=== PATIENT | male | born 1950 | race Caucasian/White ===

== ENCOUNTER 2025-01-14 20:03 | Inpatient (IN) | payer MEDICARE, MEDICAID ==
[~2025-01-14] VITALS: Ht 170.2 cm; Wt 119.9 kg
[2025-01-14 21:07] LABS: HEMATOCRIT. 44.4 % (42.0-52.0); HEMOGLOBIN. 14.5 g/dL (14.0-18.0); MEAN PLATELET VOLUME 8.6 fl (7.4-10.4); PLATELET 229 x1000/uL (130-400); RED BLOOD CELL COUNT 4.60 mill/uL (4.7-6.1); RED CELL DISTRIBUTION WIDTH 13.7 % (11.6-14.6)
[2025-01-14 21:22] LABS: CREATININE 1.4 mg/dL (0.6-1.3); INR 1.1
[2025-01-14 21:23] LABS: UREA NITROGEN BLOOD 31 mg/dL (9-23)
[2025-01-14 21:24] LABS: ASPARTATE AMINOTRANSFERASE 25 IU/L (<34)
[2025-01-14 21:25] LABS: BILIRUBIN DIRECT 0.4 mg/dL (<=3.0); BILIRUBIN TOTAL 1.2 mg/dL (0.1-1.0); PROTEIN TOTAL 7.8 g/dL (6.0-8.3)
[2025-01-14 21:26] LABS: BAND% 2.0 % (1.0-6.0); EOSINOPHILS % MANUAL 1.0 % (0.0-5.0); LYMPHOCYTES % MANUAL 7.0 % (20.0-50.0); MONOCYTES % MANUAL 1.0 % (2.0-8.0); NEUTROPHILS % MANUAL 89.0 % (45.0-75.0); PLATELET ESTIMATE NORMAL
[2025-01-14 21:47] LABS: TROPONIN I HIGH SENSITIVITY 65 ng/L (3.0-53)
[2025-01-14] MEDS: NITROGLYCERIN OINT 1GM/INCH UDPKT TD ONE (21:52)
[2025-01-14] MEDS: FUROSEMIDE 40MG/4ML VIAL IVP STA (21:52)
[2025-01-14 23:48] LABS: TROPONIN I HIGH SENSITIVITY 69 ng/L (3.0-53)
[2025-01-15 01:00] VITALS: BP 104/63; PULSE 69; RESP 66; TEMP 36.696
[2025-01-15] MEDS ORDERED: PRAM3.75 PO (04:07)
[2025-01-15] MEDS ORDERED: POTA20LI52 MT (04:07)
[2025-01-15] MEDS ORDERED: TRAZ-251 MT (04:07)
[2025-01-15] MEDS ORDERED: ESCI20TA PO (04:07)
[2025-01-15] MEDS ORDERED: PRAM1.5T5 PO (04:07)
[2025-01-15] MEDS ORDERED: FURO40TA5 PO (04:07)
[2025-01-15] MEDS ORDERED: APIX5TAB PO ×2 (04:07→09:26)
[2025-01-15] MEDS ORDERED: DEXTROSE 50% WATER 50ML SYRINGE IV PRN (04:30)
[2025-01-15] MEDS: BLOOD SUGAR DIAGNOSTIC STRIP TEST SCH (06:50)
[2025-01-15] MEDS: INSULIN LISPRO 100 UNITS/ML SUBCUT SCH (07:20)
[2025-01-15 08:01] VITALS: BP 142/85; PULSE 74; RESP 20; TEMP 36.4; O2SAT 94
[2025-01-15] MEDS: LOSARTAN 50 MG TABLET PO SCH (09:00)
[2025-01-15] MEDS ORDERED: FUROSEMIDE 40MG TABLET PO SCH (09:00)
[2025-01-15] MEDS ORDERED: APIXABAN 5 MG TABLET PO SCH ×2 (09:00→10:30)
[2025-01-15] MEDS ORDERED: TRAZ-251 PO (09:25)
[2025-01-15] MEDS ORDERED: ESCI20TA37 PO (09:25)
[2025-01-15] MEDS ORDERED: GABA-290 PO (09:26)
[2025-01-15] MEDS ORDERED: TAFA20CA PO (09:50)
[2025-01-15] MEDS ORDERED: AMI2 PO (09:50)
[2025-01-15] MEDS ORDERED: ALIR75PE5 SUBCUT (09:50)
[2025-01-15] MEDS ORDERED: TORS20TA4 PO (09:50)
[2025-01-15] MEDS ORDERED: TAFAMIDIS PO SCH (10:45)
[2025-01-15] MEDS: POTASSIUM CHLORIDE 20MEQ TABLET SR PO NR (11:12)
[2025-01-15] MEDS: AMIODARONE 200MG TABLET PO SCH (11:14)
[2025-01-15] MEDS: FUROSEMIDE 40MG/4ML VIAL IVP SCH (11:15)
[2025-01-15] MEDS: METOLAZONE 2.5MG TABLET PO NR (11:15)
[2025-01-15] MEDS: ASPIRIN 81MG TABLET PO SCH (11:16)
[2025-01-15] MEDS: ENOXAPARIN 120MG/0.8ML SYR SUBCUT SCH (11:20)
[2025-01-15 11:54] LABS: BASOPHILS % 1.0 % (0.0-2.0); EOSINOPHILS % 3.3 % (0.0-5.0); HEMATOCRIT. 44.9 % (42.0-52.0); HEMOGLOBIN. 14.6 g/dL (14.0-18.0); LYMPHOCYTES % 10.0 % (20.0-50.0); MEAN PLATELET VOLUME 8.5 fl (7.4-10.4); MONOCYTES % 7.7 % (2.0-8.0); NEUTROPHILS % 78.0 % (40.0-76.0); PLATELET 231 x1000/uL (130-400); RED BLOOD CELL COUNT 4.63 mill/uL (4.7-6.1); RED CELL DISTRIBUTION WIDTH 13.9 % (11.6-14.6)
[2025-01-15 12:06] VITALS: BP 156/82; PULSE 64; RESP 14; TEMP 36.7; O2SAT 96
[2025-01-15 12:12] LABS: CREATININE 1.1 mg/dL (0.6-1.3); TRIGLYCERIDE 98 mg/dL (0-150); UREA NITROGEN BLOOD 21 mg/dL (9-23)
[2025-01-15 12:13] LABS: LDL CHOLESTEROL 87 mg/dL (5-100)
[2025-01-15] MEDS: ASPIRIN 325MG TABLET PO ONE (14:53)
[2025-01-15] MEDS: TAFAMIDIS PO SCH (15:29)
[2025-01-15] MEDS: NYSTATIN POWDER 15GM TOP SCH (15:30)
[2025-01-15 16:00] VITALS: BP 125/68; PULSE 58; RESP 12; TEMP 36.6; O2SAT 97
[2025-01-15 19:58] VITALS: BP 134/64; PULSE 63; RESP 21; TEMP 36.6; O2SAT 98
[2025-01-15] MEDS: TRAZODONE HCL 50MG TABLET PO SCH (20:35)
[2025-01-15] MEDS: GUAIFENESIN-DM 200MG-20MG/10ML UDC PO PRN (20:35)
[2025-01-15] MEDS: SILDENAFIL CITRATE 20MG TABLET PO SCH (22:00)
[2025-01-15 22:01] VITALS: PULSE 68; RESP 15; O2SAT 98
[2025-01-15] MEDS ORDERED: PRAMIPEXOLE DI-HCL 0.125MG TABLET PO SCH (23:00)
[2025-01-15] MEDS: PRAMIPEXOLE DI-HCL 0.25MG TABLET PO SCH (23:18)
[2025-01-16] VITALS (9 sets, daily range): BP systolic 94–135; BP diastolic 65–103; PULSE 55–81; RESP 15–29; TEMP 36.4–36.8; O2SAT 88–99
[2025-01-16 06:46] LABS: CREATININE 1.1 mg/dL (0.6-1.3)
[2025-01-16 06:48] LABS: UREA NITROGEN BLOOD 19 mg/dL (9-23)
[2025-01-16] MEDS ORDERED: IODIXANOL 320MG/ML 100 ML BOTTLE IV ONE ×2 (08:38→08:58)
[2025-01-16] MEDS ORDERED: VERAPAMIL HCL 2.5 MG/1 ML 2ML VIAL IV ONE (08:57)
[2025-01-16] MEDS ORDERED: FENTANYL CITRATE/PF 50MCG/ML 2ML VIAL ONE (08:57)
[2025-01-16] MEDS ORDERED: MIDAZOLAM HCL 2 MG/2 ML VIAL ONE (08:57)
[2025-01-16] MEDS ORDERED: LIDOCAINE HCL 1% 20ML VIAL ONE (08:58)
[2025-01-16] MEDS ORDERED: HEPARIN 1000 UNITS/ML 10ML ONE (08:58)
[2025-01-16] MEDS ORDERED: DIPHENHYDRAMINE 50MG/ML VIAL ONE (09:08)
[2025-01-16] MEDS ORDERED: IPRATROPIUM/ALBUTEROL 0.5-3(2.5)MG/3ML NEB HHN PRN (10:15)
[2025-01-16] MEDS ORDERED: ATROPINE SULFATE 1MG/10ML SYR IV PRN (10:15)
[2025-01-16] MEDS: APIXABAN 5 MG TABLET PO SCH (22:02)
[2025-01-17] VITALS: BP 134/68; PULSE 91; RESP 20; TEMP 36.3; O2SAT 95
[2025-01-17] MEDS: ACETAMINOPHEN 325MG TABLET PO PRN (03:43)
[2025-01-17 04:00] VITALS: BP 113/76; PULSE 65; RESP 19; TEMP 36.4; O2SAT 94
[2025-01-17 08:00] VITALS: BP 116/96; PULSE 54; RESP 18; TEMP 36.6; O2SAT 93
[2025-01-17 10:17] LABS: BASOPHILS % 0.7 % (0.0-2.0); EOSINOPHILS % 4.9 % (0.0-5.0); HEMATOCRIT. 44.4 % (42.0-52.0); HEMOGLOBIN. 14.3 g/dL (14.0-18.0); LYMPHOCYTES % 12.5 % (20.0-50.0); MEAN PLATELET VOLUME 8.4 fl (7.4-10.4); MONOCYTES % 11.2 % (2.0-8.0); NEUTROPHILS % 70.7 % (40.0-76.0); PLATELET 187 x1000/uL (130-400); RED BLOOD CELL COUNT 4.58 mill/uL (4.7-6.1); RED CELL DISTRIBUTION WIDTH 13.3 % (11.6-14.6)
[2025-01-17 10:40] LABS: CREATININE 1.2 mg/dL (0.6-1.3); UREA NITROGEN BLOOD 21.0 mg/dL (9-23)
[2025-01-17 12:15] VITALS: BP 118/63; PULSE 57; RESP 17; TEMP 36.7; O2SAT 95
[2025-01-17 12:22] VITALS: BP 107/62; PULSE 54; RESP 18; TEMP 97.8
== END 2025-01-17 14:43 | DRG 280 ==
LOC: ER 20:03 → 3WST 23:11 → EDBEDREQTM 23:15 → EDBEDREQ 23:15 → ENRESERV 23:30
PROVIDERS: ADMIT Internal Medicine; ATTEND Internal Medicine
PROC: 4A023N7 Measurement of Cardiac Sampling and Pressure, Left Heart, Percutaneous Approach (ICD-10-PCS; principal; 2025-01-16)
PROC: B211YZZ Fluoroscopy of Multiple Coronary Arteries using Other Contrast (ICD-10-PCS; 2025-01-16)
DX: I11.0 Hypertensive heart disease with heart failure (principal); I50.33 Acute on chronic diastolic (congestive) heart failure; I21.4 Non-ST elevation (NSTEMI) myocardial infarction; J96.01 Acute respiratory failure with hypoxia; E85.4 Organ-limited amyloidosis; I48.92 Unspecified atrial flutter; Z68.41 Body mass index [BMI] 40.0-44.9, adult; I43 Cardiomyopathy in diseases classified elsewhere; E66.9 Obesity, unspecified; L30.4 Erythema intertrigo; R73.9 Hyperglycemia, unspecified; I25.10 Atherosclerotic heart disease of native coronary artery without angina pectoris; I48.91 Unspecified atrial fibrillation; I44.0 Atrioventricular block, first degree; I45.10 Unspecified right bundle-branch block; I49.3 Ventricular premature depolarization; Z95.5 Presence of coronary angioplasty implant and graft; Z79.899 Other long term (current) drug therapy
CPT/HCPCS: 36415; 71045; 80048; 80061; 80076; 82962; 83036; 83880; 84484; 85025; 86850; 86900; 93005; 93306; 93454; 93970; 94070; 94640; 99291; A4606; C1769; C1887; C1893; J1200; J1644; J1650; J1815; J1938; J2003; J2250; J3010; J3490; Q9967